=== PATIENT | male | born 1960 | race Caucasian/White ===

== ENCOUNTER 2024-05-30 04:24 | Day surgery (SDC) | payer BC ==
[2024-05-21 13:26] VITALS: BMI 25.5
[2024-05-30 10:06] VITALS: TEMP 98
[2024-05-30 10:07] VITALS: RESP 16
[2024-05-30 10:34] VITALS: BP 112/69; PULSE 63
== END 2024-05-30 10:40 | disposition home or self-care (01) ==
LOC: JASU-ENDO 04:24
PROVIDERS: ATTEND Internal Medicine Gastroenterology
PROC: 0DJD8ZZ Inspection of Lower Intestinal Tract, Via Natural or Artificial Opening Endoscopic (ICD-10-PCS; principal; 2024-05-30 10:00)
DX: Z12.11 Encounter for screening for malignant neoplasm of colon (principal); K57.30 Diverticulosis of large intestine without perforation or abscess without bleeding; K64.8 Other hemorrhoids